=== PATIENT | male | born 1975 | race Caucasian/White ===

== ENCOUNTER 2019-02-03 21:24 | Emergency (ER) | payer MEDICAID ==
[~2019-02-03] VITALS: Ht 165.1 cm; Wt 69.4 kg
[2019-02-03 21:55] VITALS: BP 175/108
--- NOTE | 2019-02-03 23:44 | NUR ---
PT AMBULATED TO ER BED 3
--- NOTE | 2019-02-03 23:48 | NUR ---
[place] SPEAKING PT AMBULATES TO BED 3 W/ C/O RT VIJI PAIN S/P STEP ON A NAIL YESTERDAY W/ CHRONIC LATERAL RT FOOT ULCER D/T DM HX; DM
[2019-02-04 00:30] VITALS: BP 159/91
--- NOTE | 2019-02-04 00:45 | NUR ---
PT SEEN WITH EYES CLOSED. VISIBLE CHEST RISE AND FALL NOTED. WILL CONTINUE TO MONITOR.
--- NOTE | 2019-02-04 01:05 | NUR ---
DR. CORTES AT BEDSIDE EVALUTING PT.
== END 2019-02-03 23:40 | disposition home or self-care (01) ==
LOC: MED 21:24
DX: S91.331A Puncture wound without foreign body, right foot, initial encounter (principal); E11.9 Type 2 diabetes mellitus without complications; W45.0XXA Nail entering through skin, initial encounter; Y93.89 Activity, other specified; Y92.89 Other specified places as the place of occurrence of the external cause; Y99.8 Other external cause status
CPT/HCPCS: 82948; 99283